=== PATIENT | female | born 1975 ===

== ENCOUNTER 2017-09-26 09:33 | Observation (INO) | payer OTHER ==
[2017-09-26 09:38] VITALS: BMI 26.6
[2017-09-26] MEDS ORDERED: Sodium Chloride 0.9% 1,000 ML IV SCH (10:15)
[2017-09-26] MEDS ORDERED: Sodium Chloride 0.9% 1,000 ML ONE (10:21)
[2017-09-26 10:26] LABS: SQUAMOUS EPITHIAL 10 /hpf (0-5); URINE BACTERIA RARE (<OCC); URINE BILIRUBIN NEGATIVE (NEGATIVE); URINE BLOOD NEGATIVE (NEGATIVE); URINE CLARITY Hazy (Clear); URINE COLOR Straw (YELLOW); URINE GLUCOSE (UA) NORMAL (Normal); URINE LEUKOCYTE ESTERASE NEG Leu/uL (Negative); URINE PROTEIN NEGATIVE (NEGATIVE); URINE UROBILINOGEN NORMAL mg/dL (0.2-1.0)
--- NOTE | 2017-09-26 10:33 | C.PDOC ---
History Of Present Illness Patient is a 41 y/o female, with a Hx of migraines, who presents to the ED by referral of Dr. Arguelles for abdominal pain associated with alternating diarrhea and constipation for the last 1 month . Patient describes pain as squeezing and notes mucous in stool. Admits pain causes decrease in appetite and sometimes worsens with eating. Admits to chills, denies any fever. Patient was seen at [facility] twice in the last few days, reporting to have had a negative abdominal CT. No other physical complaints at this time. Time Seen by Provider: 09/26/17 09:51 Chief Complaint (Nursing): Abdominal Pain History Per: Patient History/Exam Limitations: no limitations Onset/Duration Of Symptoms: Days (1 month) Current Symptoms Are (Timing): Still Present Radiation Of Pain To:: None Quality Of Discomfort: Other (squeezing) Associated Symptoms: Chills, Diarrhea, Loss Of Appetite, Constipation. denies: Fever Recent travel outside of the [place]: No Past Medical History Reviewed: Historical Data, Nursing Documentation, Vital Signs Vital Signs: Last Vital Signs Temp 98.2 F 09/27/17 15:30 Pulse 87 09/27/17 15:30 Resp 20 09/27/17 15:30 BP 138/85 09/27/17 15:30 Pulse Ox 100 09/29/17 12:31 - Medical History PMH: Migraine Surgical History: No Surg Hx Family History: States: No Known Family Hx - Social History Hx Tobacco Use: No Hx Alcohol Use: No Hx Substance Use: No Review Of Systems Constitutional: Positive for: Chills. Negative for: Fever Cardiovascular: Negative for: Chest Pain Respiratory: Negative for: Cough, Shortness of Breath Gastrointestinal: Positive for: Abdominal Pain, Diarrhea, Constipation. Negative for: Vomiting Genitourinary: Negative for: Dysuria Skin: Negative for: Rash Neurological: Negative for: Weakness, Numbness Physical Exam - Physical Exam Appears: No Acute Distress, Other (well developed, well nourished) Skin: No Rash Head: Atraumatic, Normacephalic Eye(s): bilateral: PERRL, EOMI Oral Mucosa: Moist Neck: Supple Chest: Symmetrical Cardiovascular: Rhythm Regular, No Murmur, Other (regular rate) Respiratory: Normal Breath Sounds, No Rales, No Rhonchi, No Wheezing, Other ( clear to auscultation bilaterally ) Gastrointestinal/Abdominal: Bowel Sounds (normal), Soft, No Tenderness, No Distention, No Guarding, No Rebound Back: No CVA Tenderness Extremity: No Tenderness, No Swelling Neurological/Psych: Oriented x3, Normal Speech, Normal Cognition, Other (no focal deficits) ED Course And Treatment - Laboratory Results Result Diagrams: 09/26/17 10:36 09/26/17 10:36 O2 Sat by Pulse Oximetry: 100 Progress Note: Blood work and UA ordered. Zofran and IV fluids administered. Medical Decision Making Medical Decision Making: pt with persistent abdominal pain x 1 month, with weight loss, unable to eat, discussed with Dr Ken, will admit for further evaluation. Disposition Discussed With .: Enzo Ken Doctor Will See Patient In The: Hospital - Disposition Disposition: HOSPITALIZED Disposition Time: 13:02 ( ) Condition: GOOD - Clinical Impression Clinical Impression: Abdominal pain, Weight loss, non-intentional - Scribe Statement The provider has reviewed the documentation as recorded by the Scribedwin Ramirez All medical record entries made by the Scribedwin were at my direction and personally dictated by me. I have reviewed the chart and agree that the record accurately reflects my personal performance of the history, physical exam, medical decision making, and the department course for this patient. I have also personally directed, reviewed, and agree with the discharge instructions and disposition.
[2017-09-26 10:39] LABS: BASO % 0.2 % (0.0-2.0); EOS % 0.5 % (0.0-4.0); HEMOGLOBIN 13.5 g/dL (11.0-16.0); LYMPH # 1.3 K/uL (1.0-4.3); LYMPH % 13.1 % (20.0-40.0); MEAN CELL VOLUME 84.9 fL (81.0-99.0); MEAN CORPUSCULAR HEMOGLOBIN 29.3 pg (27.0-31.0); MEAN CORPUSCULAR HGB CONC 34.5 g/dL (33.0-37.0); MONO # 0.7 K/uL (0.0-0.8); MONO % 7.2 % (0.0-10.0); NEUT # 7.6 K/uL (1.8-7.0); RBC 4.6 Mil/uL (3.80-5.20); RED CELL DISTRIBUTION WIDTH 14.5 % (11.5-14.5); WHITE BLOOD COUNT 9.7 K/uL (4.8-10.8)
[2017-09-26] MEDS ORDERED: Sodium Chloride 0.9% 1,000 ML IV ONE (10:44)
[2017-09-26 11:02] LABS: ALB/GLOB RATIO 1.4 (1.0-2.1); ALBUMIN 4.9 g/dL (3.5-5.0); ALT/SGPT 47 U/L (9-52); AST/SGOT 33 U/L (14-36); BLOOD UREA NITROGEN 8 mg/dL (7-17); CALCIUM 9.3 mg/dl (8.6-10.4); GFR AFRICAN-AMERICAN > 60; GFR NON-AFRICAN AMERICAN > 60; LIPASE 73 U/L (23-300)
[2017-09-26] MEDS ORDERED: Peg-Electrolyte Oral Soln 4L (Golytely) PO ONE (14:30)
[2017-09-26 16:41] LABS: INR 1.2; PROTHROMBIN TIME 13.2 SECONDS (9.7-12.2)
[2017-09-26] MEDS ORDERED: Bisacodyl 5mg EC Tab PO ONE ×2 (17:00→21:28)
[2017-09-26] MEDS: metroNIDAZOLE IV 500 mg/100 ml 500 MG/100 ML BAG IVPB SCH (18:23)
--- NOTE | 2017-09-26 20:28 | CT ---
EXAM: CT Head Without Intravenous Contrast EXAM DATE/TIME: Exam ordered 09/26/2017 7:07 PM CLINICAL HISTORY: 41 years old, female; Signs and symptoms; Other: Rt facial tingling and numbnes; Additional info: Tingling sensation on her right face TECHNIQUE: Axial computed tomography images of the head/brain without intravenous contrast. All CT scans at this facility use one or more dose reduction techniques, viz.: automated exposure control; ma/kV adjustment per patient size (including targeted exams where dose is matched to indication; i.e. head); or iterative reconstruction technique. COMPARISON: No relevant prior studies available. FINDINGS: Brain: No acute findings. No hemorrhage. No significant white matter disease. Ventricles: Unremarkable. No ventriculomegaly. Bones/joints: Unremarkable. No acute fracture. Soft tissues: Unremarkable. Sinuses: Unremarkable as visualized. No acute sinusitis. Mastoid air cells: Unremarkable as visualized. No mastoid effusion. IMPRESSION: 1. No acute findings.
[2017-09-26 21:43] LABS: CK-MB < 0.22 ng/mL (0.0-3.38)
[2017-09-27] MEDS: metroNIDAZOLE IV 500 mg/100 ml 500 MG/100 ML BAG IVPB SCH ×3 (01:48→11:50)
--- NOTE | 2017-09-27 06:34 | CON ---
DATE: 09/26/[address] Foote to Dr. Enzo Ken. I was called for GI consultation by the admitting medical team as well as the ER staff and the patient's own family also. The patient is seen and fully examined on 09/26/2017. The entire chart is reviewed including but not limited to the most recent lab and radiology study results, current and previous medication lists, current and previous medical events. Case discussed with the ER staff at length. HISTORY OF PRESENT ILLNESS: This is a 41-year-old female who was admitted to the hospital due to severe, crampy, persistent abdominal pain, profuse recurrent diarrhea, recurrent episodes of nausea, vomiting and dyspepsia for which she was directed to go to the hospital for evaluation and workup. The patient was also admitted for loss of appetite with excessive decrease of body weight loss, generalized weakness and malaise but no chest pain, palpitation, active bleeding, chills, or fever. She had previously negative abdominal CAT scan in another medical institution as per her statement. PAST MEDICAL HISTORY: Including, but not limited to, 1. Migraine headache. 2. Peptic ulcer disease. FAMILY HISTORY: Unknown. SOCIAL HISTORY: Denies any recent history of cigarette smoking or alcohol intake. CURRENT MEDICATION: Medication list post admission is seen. ALLERGIES TO MEDICATIONS: Unclear. LABORATORY DATA: Post admission lab workup showed normal CBC with blood glucose level 108. PHYSICAL EXAMINATION: GENERAL: A 41-year-old female complaining of severe crampy abdominal pain with much more frequent bowel movement of thin liquid mucoid fecal material. VITAL SIGNS: The patient is afebrile with pulse of 104, respiratory rate of 20 to 22, blood pressure 128/68. HEENT: Showed dry oral mucoid membrane, nonicteric sclerae. LYMPH NODES: No lymphadenitis or lymphadenopathy. LUNGS: Clear. Breathing sounds are present bilaterally. HEART: Positive S1 and S2 with increased rate. ABDOMEN: With generalized moderate to severe tenderness and slight distention. Bowel sound are excessively hyperactive. No mass or organomegaly. No rebound tenderness or guarding. . RECTAL: The patient refused. EXTREMITIES: Without significant clubbing, cyanosis or edema. NEUROLOGIC: No reported new neurological deficits, sensory or motor. Peripheral pulses are present bilaterally. IMPRESSION: 1. Profuse diarrhea for the last several days of unclear etiology, was not fully evaluated in another medical institution. 2. Re-exacerbation of peptic ulcer disease. 3. Migraine headache by history. 4. New episode of hyperglycemia of unclear etiology. SUGGESTIONS: 1. Agree with your plan. 2. Flagyl IV after complete . 3. Cancer markers including CEA. 4. Proton pump inhibitors. 5. Endoscopic evaluation of lower GI tract due to the patient's recurrent profuse diarrhea recently. 6. Further recommendation to follow. Thank you for letting me participate in your patient's case management. Sloan Foote MD
[2017-09-27] MEDS ORDERED: Propofol 10 mg/ml Inj (20 ML) ONE ×2 (08:20→08:35)
[2017-09-27] MEDS ORDERED: Midazolam 2 MG/2 ML VIAL ONE ×2 (08:20→08:30)
--- NOTE | 2017-09-27 09:17 | CP.PCM.PN ---
Subjective - Date & Time of Evaluation Date of Evaluation: 09/27/17 Time of Evaluation: 09:09 - Subjective Subjective: Progress Note for Dr. Ken Patient seen and examined at bedside. Overnight patient complains of right sided facial numbness with no other neurological symptoms. Patient states this happened previously when she was having migraine attacks. CT head was ordered which showed no acute abnormalities. Patients states her abdominal pain and diarrhea improved since the colonoscopy prep "cleaned her out". Patient reports to have dizziness intermittently. She currently denies having headache, fever, chills, chest pain, nausea, or vomiting. Objective - Vital Signs/Intake and Output Vital Signs (last 24 hours): Temp Pulse Resp BP Pulse Ox 98.2 F 76 20 125/82 100 09/27/17 08:18 09/27/17 08:18 09/27/17 08:18 09/27/17 08:18 09/27/17 08:18 Intake and Output: 09/27/17 09/27/17 06:59 18:59 Intake Total 400 Balance 400 - Medications Medications: Current Medications Ciprofloxacin (Cipro) 500 mg PO BID [facility] PRN Reason: Protocol Metronidazole (Flagyl) 500 mg in 100 mls @ 100 mls/hr IVPB Q8H [facility] PRN Reason: Protocol Last Admin: 09/27/17 01:48 Dose: 100 mls/hr Metoclopramide HCl (Reglan) 5 mg IVP Q6H [facility] Last Admin: 09/27/17 01:48 Dose: 5 mg Pantoprazole Sodium (Protonix Inj) 40 mg IVP DAILY [facility] Last Admin: 09/26/17 14:22 Dose: 40 mg Pneumococcal Polyvalent Vaccine (Pneumovax 23 Vaccine) 0.5 ml IM .ONCE ONE Stop: 09/27/17 10:01 - Labs Labs: 09/26/17 10:36 09/26/17 10:36 PT 13.2 SECONDS (9.7-12.2) H 09/26/17 16:23 INR 1.2 09/26/17 16:23 APTT 30 SECONDS (21-34) 09/26/17 16:23 - Constitutional Appears: Non-toxic, No Acute Distress - Head Exam Head Exam: ATRAUMATIC, NORMOCEPHALIC - Eye Exam Eye Exam: EOMI, Normal appearance - ENT Exam ENT Exam: Mucous Membranes Moist - Respiratory Exam Respiratory Exam: Clear to Ausculation Bilateral, NORMAL BREATHING PATTERN. absent: Rhonchi, Wheezes, Respiratory Distress - Cardiovascular Exam Cardiovascular Exam: REGULAR RHYTHM, +S1, +S2. absent: Murmur - GI/Abdominal Exam GI & Abdominal Exam: Soft, Tenderness (mild diffused tenderness), Normal Bowel Sounds - Extremities Exam Extremities Exam: Full ROM. absent: Joint Swelling Assessment and Plan - Assessment and Plan (Free Text) Assessment: Diverticulosis -Endoscopy this morning shows moderate diverticulosis in the sigmoid, descending , amending and transverse colon with no bleeds -Polyps resected, f/u pathology -Clear liquid diet -Cipro 500mg BID -Follow further GI recommendations History of migraines -Continue home medications Right sided facial numbness, resolved -Neurology and cardiology consulted -Likely allergic reaction to colonoscopy prep solution Case discussed with attending physician Patient is medically stable to be discharge per Dr. Ken
[2017-09-27] MEDS ORDERED: Pneumococcal 23-Valent Vaccine IM ONE (10:00)
[2017-09-27 11:45] LABS: AMYLASE 65 U/L (30-110); LIPASE 61 U/L (23-300)
[2017-09-27 16:22] VITALS: BP 138/85; PULSE 87; RESP 20; TEMP 98.2
--- NOTE | 2017-09-27 17:52 | CP.PCM.CON ---
History of Present Illness - History of Present Illness History of Present Illness: Mrs. Parekh is a 41-year-old woman who was preparing for colonoscopy with bowel prep and had a reaction with facial tingling, heat, that extended to the neck and caused chest tightening. Neurology was consulted to assist. The patient was asymptomatic when I saw her. Review of Systems - Review of Systems All systems: reviewed and no additional remarkable complaints except Past Patient History - Past Social History Smoking Status: Never Smoked - NEUROLOGICAL Hx Migraine: Yes - PSYCHIATRIC Hx Substance Use: No - SURGICAL HISTORY Hx Surgeries: Yes Hx Tubal Ligation: Yes (2009) - ANESTHESIA Hx Anesthesia: Yes Meds Home Medications: Home Medication List Medication Instructions Recorded Confirmed Type Ciprofloxacin [Cipro] 500 mg PO BID #28 tab 09/27/17 Rx Hydrocortisone/Pramoxine [Analpram 28.4 gm RC BID #1 cream.appl 09/27/17 Rx Hc 1% Cream] Metoclopramide [Reglan] 10 mg PO BID PRN #14 09/27/17 09/26/17 Rx Allergies/Adverse Reactions: Allergies Allergy/AdvReac Type Severity Reaction Status Date / Time No Known Allergies Allergy Verified 09/26/17 09:37 Physical Exam - Constitutional Appears: Well - Head Exam Head Exam: ATRAUMATIC, NORMAL INSPECTION, NORMOCEPHALIC - Eye Exam Eye Exam: EOMI, Normal appearance, PERRL - Neurological Exam Neurological exam: Alert, CN II-XII Intact, Normal Gait, Oriented x3, Reflexes Normal Results - Vital Signs Recent Vital Signs: Last Vital Signs Temp 98.2 F 09/27/17 15:30 Pulse 87 09/27/17 15:30 Resp 20 09/27/17 15:30 BP 138/85 09/27/17 15:30 Pulse Ox 97 09/27/17 15:30 - Labs Result Diagrams: 09/26/17 10:36 09/26/17 10:36 Labs: Laboratory Results - last 24 hr 09/26/17 09/26/17 09/27/17 20:46 21:11 06:56 Total Creatine Kinase 61 CK-MB (Mass) < 0.22 Troponin I < 0.0120 Amylase Lipase Carcinoembryonic Ag CA 19-9 Antigen CA 125 Antigen Urine HCG, Qual Negative Stool Leukocytes, Qual Negative 09/27/17 11:26 Total Creatine Kinase CK-MB (Mass) Troponin I Amylase 65 Lipase 61 Carcinoembryonic Ag 0.5 CA 19-9 Antigen < 1.4 CA 125 Antigen 22.9 Urine HCG, Qual Stool Leukocytes, Qual Assessment & Plan (1) Allergic reaction Assessment and Plan: The patient should avoid this brand of Golytely in the future. CT scan of the head was normal. No further neurological work-up needed. Thank you. Status: Acute Priority: High
--- NOTE | 2017-09-28 02:11 | CARD ---
APPROVED REPORT EKG Measurement Heart [id number] <Conclusion> Normal sinus rhythm Normal ECG
[2017-09-28] MEDS ORDERED: Enoxaparin 40 mg Syringe SC SCH (10:00)
[2017-09-29 12:31] VITALS: O2SAT 100
--- NOTE | 2017-09-30 09:19 | HP ---
HISTORY OF PRESENT ILLNESS: The patient is a 41-year-old female, admitted to the hospital with chief complaint of weakness, fatigue, tiredness, abdominal pain, constipation. The patient came to the ER, advised admission. The patient is a nonsmoker, nondrinker. PHYSICAL EXAMINATION: GENERAL: The patient is awake, alert, and oriented. VITAL SIGNS: Temperature 98, pulse 90. HEENT: Within normal limits. NECK: Supple. CHEST: Symmetrical. HEART: Regular. ABDOMEN: Soft. EXTREMITIES: No edema. ASSESSMENT AND PLAN: The patient suffers from abdominal pain, guaiac positive stool . Patient to get bedrest, supportive care, antibiotics. Enzo eKn MD
== END 2017-09-27 16:35 | disposition home or self-care (01) ==
LOC: C.ER 09:33 → C.9E 13:04 → C.3T 14:26
PROVIDERS: ADMIT Internal Medicine Pulmonary Disease; ATTEND Internal Medicine Pulmonary Disease
DX: K57.30 Diverticulosis of large intestine without perforation or abscess without bleeding (principal); D12.4 Benign neoplasm of descending colon; D12.8 Benign neoplasm of rectum; R19.7 Diarrhea, unspecified; K64.8 Other hemorrhoids; K64.4 Residual hemorrhoidal skin tags; R20.0 Anesthesia of skin; T50.995A Adverse effect of other drugs, medicaments and biological substances, initial encounter; Y92.230 Patient room in hospital as the place of occurrence of the external cause; R73.9 Hyperglycemia, unspecified; G43.909 Migraine, unspecified, not intractable, without status migrainosus; K59.00 Constipation, unspecified; R63.4 Abnormal weight loss; Z87.11 Personal history of peptic ulcer disease; Z98.51 Tubal ligation status
CPT/HCPCS: 36415; 45385; 70450; 80053; 81001; 82150; 82378; 82438; 83690; 84302; 84311; 84484; 84703; 85025; 85610; 85730; 86301; 86304; 87045; 88305; 89055; 93005; 96374; 99285; C9113; G0328; G0378; J2765; J7030